=== PATIENT | male | born 1945 | race Caucasian/White ===

== ENCOUNTER 2017-04-28 11:32 | Emergency (ER) | payer MEDICARE ==
[~2017-04-28] VITALS: Ht 185.4 cm; Wt 102.0 kg
[2017-04-28 11:39] VITALS: BP 155/91; PULSE 57; RESP 16; O2SAT 98
--- NOTE | 2017-04-28 11:46 | ED.REPORT ---
HPI-Chest Pain 40 and Over Date of Service Apr 28, 2017 ED Provider: Colton Hernandez DO Patient is an otherwise healthy 71 year old male who presents to the ED from complaining of chest pressure onset 1030 this morning while sitting in his car. His pain radiates down the left side of his arm. Upon arrival, his pain has mostly resolved and is more of a discomfort. He denies SOB, diaphoresis, nausea , vomiting, jaw pain, or any other symptoms. He has had similar symptoms previously that were due to gas. Patient occasionally takes a baby aspirin. Patient is visiting town from [place]. Nursing Notes Stated Complaint: HEART PAINS Chief Complaint: Chest Pain Nursing Notes Reviewed: Yes Allergies: Coded Allergies: No Known Allergies (Unverified , 04/28/17) No Active Prescriptions or Reported Meds General Time Seen by MD: 11:45 Chief Complaint Chest pressure Hx Obtained From: Patient Arrived By: Walk-in Sudden in Onset?: Yes Onset Occurred: 1 - 4 hours ago Symptom Duration: Since onset Radiation: : Arm left Risk Factors )( CAD Risk Stratification No Diabetes mellitus, No Hyperlipidemia, No Hypertension, No Known CAD, No Smoking Risk factors reviewed )( TAD Risk Stratification No Aortic valve disease, No Hypertension, No Pre-exist aortic aneurysm Risk factors reviewed )( PE Risk Stratification No Previous DVT, No Previous PE, No Surgery Last 60 Days Risk factors reviewed Past Medical History Past Medical History Sleep apnea Past Surgical History Sleep apnea related surgeries Smoking History Never Smoker Social History Other Social History: , From out of town, Visiting locally Ambulatory Status Independent Review of Systems Review of Systems Note: -jaw pain Respiratory: Denies: Shortness of breath Cardiovascular: Reports: Chest pain (pressure ) GI: Denies: Nausea, Vomiting Musculoskeletal: Reports: Extremity pain Skin: Denies Diaphoresis Complete sys rev & neg: except as marked. Physical Exam Initial Vital Signs Vital Signs (First) Date Time Temp Pulse Resp B/P Pulse Ox O2 Delivery O2 Flow Rate FiO2 04/28/17 11:39 36.5 57 16 155/91 98 Room Air Initial VS: Reviewed, Vital signs abnormal Head / Eyes: Atraumatic, Normocephalic Skin: Warm, Dry Neurologic: Alert, Oriented, Nonfocal Psychiatric: Mood/affect normal, Behavior normal, Normal thought content General/Constitutional: Awake, Alert, No acute distress Respiratory / Chest: Atraumatic, Breath sounds NL, Breath sounds = bilat, No respiratory distress Cardiovascular: Heart rate NL, Regular rhythm, Heart sounds NL, No murmurs Abdomen: Atraumatic, Soft, Non-tender Neck: Atraumatic, Supple, Full range of motion, No JVD Back: Atraumatic, Inspection NL Lower Extremity / Pelvis / MS: No edema Good pulses bilaterally Interpretation & Diagnostics Lab Results Interpretation Result Diagram: 04/28/17 1155 04/28/17 1155 Test 04/28/17 11:55 04/28/17 13:23 White Blood Count 5.9th/mm3 (3.8-10.1) Red Blood Count 4.97mil/mm3 (4.40-5.80) Hemoglobin 15.0g/dL (13.8-17.2) Hematocrit 44.4% (41.0-50.0) Mean Corpuscular Volume 89.3fL (81-100) Mean Corpuscular Hemoglobin 30.2pg (27.0-35.0) Mean Corpuscular Hemoglobin Concent 33.8% (32.0-37.0) Red Cell Distribution Width 13.2% (12.3-15.4) Platelet Count 200bil/L (150-400) Neutrophils (%) (Auto) 56.1% (40-74) Lymphocytes (%) (Auto) 29.7% (14-46) Monocytes (%) (Auto) 8.6% (4-12) Eosinophils (%) (Auto) 4.9% (0-5) Basophils (%) (Auto) 0.5% (0-3) Sodium Level 142mEq/L (134-144) Potassium Level 4.2mEq/L (3.5-5.2) Chloride Level 106mEq/L (97-108) Carbon Dioxide Level 24mmol/L (18-29) Blood Urea Nitrogen 14mg/dL (8-27) Creatinine 0.94mg/dL (0.76-1.27) Estimat Glomerular Filtration Rate 84mL/min (>59) Glucose Level 112mg/dL (60-99) Calcium Level 8.9mg/dL (8.5-10.1) Magnesium Level 2.1mg/dL (1.6-2.6) Total Bilirubin 0.5mg/dL (0.0-1.2) Aspartate Amino Transf (AST/SGOT) 26U/L (0-50) Alanine Aminotransferase (ALT/SGPT) 31U/L (0-44) Alkaline Phosphatase 65U/L (25-160) Total Protein 7.1g/dL (6.4-8.4) Albumin 4.2g/dL (3.4-5.0) Hold Turpin Top Tube Received (Received) Troponin T < 0.010ug/L (0.0-0.011) ECG Interpretation ECG Interpretation: sinus rate 51 Inverted T wave in V3 no previous available No other abnormalities Time: 11:51 Interpreted by: ED physician X-Ray Chest Interpretation Chest Xray Interpretation: IMPRESSION: 1. No acute cardiopulmonary disease. Dictated by: Drew Peters M.D. on 04/28/2017 at 12:29 Approved by: Drew Peters M.D. on 04/28/2017 at 12:29 View: Portable, 1 view Interpretation / Wet Read by: Interpret - Radiologist Re-Eval/Medical Decision Med Decision/Clinical Course 71-year-old male with no identified risk factors for coronary artery disease presents with chest pain that has resolved. It started around 10:30 today and serial troponins were negative 2. EKG had an inverted T-wave in lead III, no old for comparison. Patient has recently been doing significant cardiac stressors [place] He has had a stress test years ago that returned normal. His heart score risk is low. I have advised that a stress test would still be very important and should be done in the next week or 2. Patient understands and agrees with the plan Time of Eval: 14:30 Re-Evaluation/Progress Note: Rechecked pt who has not had any symptoms since arrival. Discussed lab results. Pt reports he did a strenuous, 8 mile bike ride 2 weeks ago without difficulty. Discussed plan for discharge. Patient understands and agrees with plan. All questions addressed at this time. Counseled Regarding: Diagnosis, Lab results, Need for follow-up, When/why to return to ED Discharge & Departure Primary Impression: Chest pressure Ruled Out: Acute coronary syndrome Disposition: Home Discharge Condition All VS Reviewed: Yes Condition: Improved Patient Instructions: Chest Pain (ED) Additional Instructions: Thank you for coming to the emergency department. Your EKG, Xray, labs, and examination are reassuring. We did not find a dangerous cause for your symptoms at this time. Follow up with your primary doctor as soon as you can. I suggest scheduling a stress test for further evaluation. If you have any new or concerning symptoms, I suggest you return to the emergency department and stay overnight for a further workup. I hope you enjoy the rest of your vacation! Scribe Attestation Portions of this note were transcribed by Nain Del iCd. I, Dr. Hernandez personally performed the history, physical exam and medical decision-making; I reviewed and confirmed the accuracy of the information in the transcribed note. Signed by: Kaz Mccollum, 04/28/17 Colton Hernandez DO Apr 28, 2017 11:46 NAIN DEL CID Apr 28, 2017 12:14
[2017-04-28 12:16] LABS: BASOPHILS % (AUTO) 0.5 % (0-3); EOSINOPHILS % (AUTO) 4.9 % (0-5); MONOCYTES % (AUTO) 8.6 % (4-12); Mean Corpuscular Hemoglobin 30.2 pg (27.0-35.0); Mean Corpuscular Volume 89.3 fL (81-100); NEUTROPHILS % (AUTO) 56.1 % (40-74); Platelet Count 200 bil/L (150-400)
[2017-04-28 12:28] VITALS: BP 135/73; PULSE 58; RESP 17; O2SAT 98
--- NOTE | 2017-04-28 12:31 | DRSVH ---
PROCEDURE: X-RAY CHEST ONE VIEW, PORTABLE ([id number]) INDICATIONS: chest pain TECHNIQUE: One view of the chest was acquired. COMPARISON: None. FINDINGS: Surgical changes and devices: None. Lungs and pleura: No pleural effusions or pneumothorax. Lungs are clear. Mediastinum: Mediastinal contours appear normal. Heart size is normal. Bones and chest wall: No suspicious bony lesions. Overlying soft tissues appear unremarkable. IMPRESSION: 1. No acute cardiopulmonary disease. Dictated by: Drew Peters M.D. on 04/28/2017 at 12:29 Approved by: Drew Peters M.D. on 04/28/2017 at 12:29
[2017-04-28 13:05] LABS: Magnesium 2.1 mg/dL (1.6-2.6)
[2017-04-28 13:06] LABS: TROPONIN T 0.01 ug/L (0.0-0.011)
[2017-04-28 13:34] VITALS: BP 136/83; PULSE 58; RESP 20; O2SAT 98
[2017-04-28 15:18] VITALS: BP 126/59; PULSE 58; RESP 18; O2SAT 95
== END 2017-04-28 15:19 | disposition home or self-care (01) ==
LOC: SED 11:32
DX: R07.89 Other chest pain (principal)